=== PATIENT | female | born 1950 | race Hispanic/Latino ===

== ENCOUNTER → 2018-08-18 | Day surgery (SDC) | payer MEDICARE ==
[2018-08-17 17:41] LABS: BASOPHILS # (AUTO) 0.1 (0.0-0.1); BASOPHILS % 0.6 % (0.0-1.0); EOSINOPHILS # (AUTO) 0.2 (0.0-0.4); HEMATOCRIT 40.3 % (34.2-44.1); HEMOGLOBIN 12.8 g/dL (12.0-16.0); LYMPHOCYTES # (AUTO) 2.2 (1.0-3.2); LYMPHOCYTES % 27.5 % (18.0-39.1); MEAN CORPUSCULAR HEMOGLOBIN 30.6 pg (28-32); MEAN CORPUSCULAR HGB CONC 31.8 g/dL (31-35); MEAN CORPUSCULAR VOLUME 96.4 fL (81-99); MONOCYTES % 11.9 % (4.4-11.3); NEUTROPHILS # (AUTO) 4.7 (2.1-6.9); NEUTROPHILS % 57.6 % (38.7-80.0); PLATELET COUNT 231 x10e3/uL (140-360); RED BLOOD COUNT 4.18 x10e6/uL (3.6-5.1); RED CELL DISTRIBUTION WIDTH 14.8 % (11.7-14.4)
--- NOTE | 2018-08-17 18:09 | Diagnostic Imaging Report ---
EXAMINATION: CHEST 2 VIEWS INDICATION: Shoulder pain. Radius pain. Preop ^PRE OP ^[id number] ^1740 ^ANESTH PROT COMPARISON: None FINDINGS: TUBES and LINES: None. LUNGS: Lungs are well inflated. Mild chronic appearing changes in the lungs. There is no evidence of pneumonia or pulmonary edema. PLEURA: No pleural effusion or pneumothorax. HEART AND MEDIASTINUM: The cardiomediastinal silhouette is unremarkable. BONES AND SOFT TISSUES: No acute osseous lesion. Soft tissues are unremarkable. UPPER ABDOMEN: No free air under the diaphragm. IMPRESSION: No acute thoracic abnormality. Signed by: Dr. Edson Murphy M.D. on 08/17/2018 6:05 PM
[~2018-08-18] MED LIST: ACETAMINOPHEN 1000 MG/100 ML 100 ML IV ONE; CEFAZOLIN SOD 1 GM/NS 50ML 50 ML IV ONE; DEXAMETHASONE SOD PHOS INJ 4 MG/ML VIAL ONE; FENTANYL CITRATE/PF 100MCG/2 ML INJ ONE; IBUPROFEN600 MG PO; KETOROLAC TROMETHAMINE 30 MG/ML VIAL ONE; LIDOCAINE HCL 2% LOCAL INJ 5 ML SDV VIAL INJ ONE; LOSARTAN POTASS25 MG PO; METOPROLOL SUCC50 MG PO; ONDANSETRON HCL INJ 2MG/ML 2ML 2 MG/ML VIAL ONE; PROPOFOL IV EMULSION 10 MG/ML 20 ML VIAL ONE; SEVOFLURANE INHAL SOLN 250 ML PEN BTL ONE; TYLENOL WITH C1 EACH PO
--- OUTSIDE RECORDS SUMMARY | 2018-08-18 11:05 | XMS REPORT ---
Author Author [facility] Address Unknown Phone Unavailable Care Team Providers Care Development Spec Name Role Phone PRINCESS ROSENTHAL Unavailable Unavailable Problems This patient has no known problems. Allergies, Adverse Reactions, Alerts This patient has no known allergies or adverse reactions. Medications This patient has no known medications. Results Test Description Test Time Test Comments Text Results Atomic Results Result Comments CHEST 2 VIEWS 2018-08-17 18:05:00 [place] [address] Patient Name: KWASI MCFARLAND MR #: [id number] : 1950 Age/Sex: 68/F Req #: [id number] Adm Physician: Ordered by: PRINCESS ROSENTHAL MD Report #: [id number] Location: OR Room/Bed: Procedure: [id number] DX/CHEST 2 VIEWS Exam Date: 08/17/18 Exam Time: 1740 REPORT STATUS: Signed EXAMINATION: CHEST 2 VIEWS INDICATION: Shoulder pain. Radius pain. Preop PRE OP [id number] ANESTH PROT COMPARISON: None FINDINGS: TUBES and LINES: None. LUNGS: Lungs are well inflated. Mild chronic appearing changes in the lungs. There is no evidence of pneumonia or pulmonary edema. PLEURA: No pleural effusion or pneumothorax. HEART AND MEDIASTINUM: The cardiomediastinal silhouette is unremarkable. BONES AND SOFT TISSUES: No acute osseous lesion. Soft tissues are unremarkable. UPPER ABDOMEN: No free air under the diaphragm. IMPRESSION: No acute thoracic abnormality. Signed by: Dr. Edson Murphy M.D. on 08/17/2018 6:05 PM Dictated By: EDSON MURPHY MD, MD 04 Transcribed By: BRIAN on 08/17/181804 COPY TO: PRINCESS ROSENTHAL MD
[2018-08-18 15:45] VITALS: BP 144/86
--- NOTE | 2018-08-19 10:41 | Operative Report ---
DATE OF PROCEDURE: August 18, 2018 BODY WELDER: None. PREOPERATIVE DIAGNOSIS: Right distal radius fracture. POSTOPERATIVE DIAGNOSIS: Right distal radius fracture. PROCEDURE: Closed reduction and percutaneous pin fixation, right distal radius. INDICATIONS: The patient is a 68-year-old lady who fell and has a right distal radius fracture. The fracture is shortened and angulated. We have discussed the options. She has a BMI of 45. We have recommended closed reduction and percutaneous pin fixation over open reduction with internal fixation. The risks and benefits have been explained. She states she understands and wishes to proceed. DESCRIPTION OF PROCEDURE: The patient was brought to the operating room and placed under general anesthetic. Her right upper extremity was prepped and draped in a sterile manner. A preoperative time out was performed. A C-arm image intensifier was used to assist in ensuring a closed reduction provided a near anatomic alignment. Two 0.062 K-wires were placed from the radial styloid into the radial shaft. The proximal shaft had good quality of bone. Intraoperative x-rays confirmed satisfactory reduction and positioning of the pins. The pins were cut short and capped. A sterile bandage was applied. She was placed into a sugar-tong splint. She was extubated and transported to the recovery room in stable condition. There was no blood loss, and all needle and sponge counts were correct. Job#: [id number]
== END | disposition home or self-care (01) ==
LOC: OR 11:03
PROVIDERS: ATTEND Specialist
DX: S52.501A Unspecified fracture of the lower end of right radius, initial encounter for closed fracture (principal); W18.39XA Other fall on same level, initial encounter; Y92.009 Unspecified place in unspecified non-institutional (private) residence as the place of occurrence of the external cause; I10 Essential (primary) hypertension; Z01.810 Encounter for preprocedural cardiovascular examination; Z01.812 Encounter for preprocedural laboratory examination; Z01.818 Encounter for other preprocedural examination; Z85.3 Personal history of malignant neoplasm of breast; Z90.10 Acquired absence of unspecified breast and nipple
CPT/HCPCS: 25606; 36415; 71046; 76000; 85025; 93005; C1713; J0131; J0690; J1100; J1885; J2001; J2405; J2704

== ENCOUNTER 2023-05-25 13:34 | Inpatient (IN) | payer OTHER ==
[~2023-05-25] VITALS: Ht 157.5 cm; Wt 145.6 kg
[~2023-05-25 13:34] MED LIST changes: -ACETAMINOPHEN 1000 MG/100 ML 100 ML IV ONE; -CEFAZOLIN SOD 1 GM/NS 50ML 50 ML IV ONE; -DEXAMETHASONE SOD PHOS INJ 4 MG/ML VIAL ONE; -FENTANYL CITRATE/PF 100MCG/2 ML INJ ONE; -KETOROLAC TROMETHAMINE 30 MG/ML VIAL ONE; -LIDOCAINE HCL 2% LOCAL INJ 5 ML SDV VIAL INJ ONE; -ONDANSETRON HCL INJ 2MG/ML 2ML 2 MG/ML VIAL ONE; -PROPOFOL IV EMULSION 10 MG/ML 20 ML VIAL ONE; -SEVOFLURANE INHAL SOLN 250 ML PEN BTL ONE
[2023-05-25] MEDS ORDERED: ALBUTEROL/IPRATROPIUM 3 ML NEB NEB ONE (14:00)
[2023-05-25] MEDS ORDERED: METHYLPREDNISOLONE SOD SUCC 125 MG/2ML VIAL IV ONE (14:00)
[2023-05-25 14:17] LABS: BASOPHILS # (AUTO) 0.1 (0.0-0.1); BASOPHILS % 0.4 % (0.0-1.0); EOSINOPHILS % 0.2 % (0.0-6.0); HEMATOCRIT 43.2 % (34.2-44.1); HEMOGLOBIN 12.6 g/dL (12.0-16.0); LYMPHOCYTES # (AUTO) 1.6 (1.0-3.2); LYMPHOCYTES % 12.2 % (18.0-39.1); MEAN CORPUSCULAR HGB CONC 29.2 g/dL (31-35); MEAN CORPUSCULAR VOLUME 92.7 fL (81-99); MONOCYTES # (AUTO) 1.1 (0.2-0.8); MONOCYTES % 8.6 % (4.4-11.3); NEUTROPHILS # (AUTO) 10.2 (2.1-6.9); NEUTROPHILS % 77.7 % (38.7-80.0); PLATELET COUNT 274 x10e3/uL (140-360); RED BLOOD COUNT 4.66 x10e6/uL (3.6-5.1); RED CELL DISTRIBUTION WIDTH 17.2 % (11.7-14.4); WHITE BLOOD COUNT 13.07 x10e3/uL (4.8-10.8)
[2023-05-25 14:20] VITALS: PULSE 77; RESP 22; O2SAT 100
[2023-05-25 14:47] LABS: ALBUMIN 2.8 g/dL (3.5-5.0); ALBUMIN/GLOBULIN RATIO 0.6 (0.8-2.0); ANION GAP 12.9 mmol/L (8-16); BILIRUBIN,TOTAL 0.5 mg/dL (0.2-1.2); CALCIUM 8.9 mg/dL (8.4-10.2); CREATININE, SERUM 1.07 mg/dL (0.57-1.11); POTASSIUM 4.9 mmol/L (3.5-5.1); TOTAL PROTEIN 7.4 g/dL (6.5-8.1)
[2023-05-25] MEDS ORDERED: ONDANSETRON HCL INJ 2MG/ML 2ML 2 MG/ML VIAL IV PRN (16:15)
[2023-05-25] MEDS ORDERED: SODIUM CHLORIDE FLUSH 10 ML SYR INJ PRN (16:15)
[2023-05-25] MEDS ORDERED: ASPIRIN 81 MG CHEW TAB PO ONE ×2 (16:15)
[2023-05-25] MEDS ORDERED: FUROSEMIDE INJ 10 MG/ML 4 ML VIAL IV ONE (16:15)
[2023-05-25 17:14] VITALS: PULSE 78; RESP 22; O2SAT 96
[2023-05-25 20:00] VITALS: BP 122/66; PULSE 90; RESP 16; TEMP 97.9; O2SAT 94
[2023-05-25 21:04] VITALS: BP 169/103; PULSE 92; RESP 18; TEMP 98.5; O2SAT 96
[2023-05-25] MEDS ORDERED: FUROSEMIDE80 MG (21:16)
[2023-05-25] MEDS ORDERED: SYMBICORT 16010.2 GM INH (21:39)
[2023-05-25] MEDS ORDERED: PROVENTIL HFA6.7 GM INH (21:39)
[2023-05-25] MEDS ORDERED: VITAMIN D350 MCG (21:39)
[2023-05-25] MEDS ORDERED: ALEVE ARTHRITI100 GM (21:39)
[2023-05-25] MEDS ORDERED: OMEPRAZOLE40 MG PO (21:39)
[2023-05-25] MEDS ORDERED: [UNRECOGNIZED DRUG - OTHER] (21:39)
[2023-05-25] MEDS ORDERED: MOUNJARO5 MG/0.5 M (21:39)
[2023-05-26] VITALS (10 sets, daily range): BP systolic 106–188; BP diastolic 59–99; PULSE 74–92; RESP 16–21; TEMP 97.7–98.6; O2SAT 93–100
[2023-05-26 01:06] LABS: TROPONIN I 0.314 ng/mL (0-0.300)
[2023-05-26 05:09] LABS: BASOPHILS # (AUTO) 0.1 (0.0-0.1); BASOPHILS % 0.6 % (0.0-1.0); EOSINOPHILS % 0.1 % (0.0-6.0); HEMATOCRIT 45.5 % (34.2-44.1); LYMPHOCYTES # (AUTO) 0.8 (1.0-3.2); LYMPHOCYTES % 5.5 % (18.0-39.1); MEAN CORPUSCULAR HEMOGLOBIN 26.9 pg (28-32); MEAN CORPUSCULAR HGB CONC 28.6 g/dL (31-35); MEAN CORPUSCULAR VOLUME 94.2 fL (81-99); MONOCYTES # (AUTO) 0.4 (0.2-0.8); MONOCYTES % 2.7 % (4.4-11.3); NEUTROPHILS # (AUTO) 11.9 (2.1-6.9); NEUTROPHILS % 85.6 % (38.7-80.0); PLATELET COUNT 289 x10e3/uL (140-360); RED BLOOD COUNT 4.83 x10e6/uL (3.6-5.1); RED CELL DISTRIBUTION WIDTH 17.1 % (11.7-14.4); WHITE BLOOD COUNT 13.91 x10e3/uL (4.8-10.8)
[2023-05-26 05:27] LABS: ALBUMIN 2.8 g/dL (3.5-5.0); ALBUMIN/GLOBULIN RATIO 0.6 (0.8-2.0); ANION GAP 15.6 mmol/L (8-16); BILIRUBIN,TOTAL 0.5 mg/dL (0.2-1.2); CALCIUM 9.1 mg/dL (8.4-10.2); CREATININE, SERUM 1.13 mg/dL (0.57-1.11); POTASSIUM 4.6 mmol/L (3.5-5.1); TOTAL PROTEIN 7.7 g/dL (6.5-8.1)
[2023-05-26] MEDS ORDERED: INFLUENZA VIRUS VAC SPLIT INJ 0.5 ML SYR IM SCH (05:38)
[2023-05-26] MEDS ORDERED: PNEUMOCOCCAL VACCINE POLYVALENT 23 MCG/0.5 ML VIAL IM SCH (05:38)
[2023-05-26] MEDS ORDERED: ONDANSETRON HCL INJ 2MG/ML 2ML 2 MG/ML VIAL IV PRN (08:45)
[2023-05-26] MEDS: ALBUTEROL/IPRATROPIUM 3 ML NEB NEB SCH ×4 (08:45→19:54)
[2023-05-26] MEDS ORDERED: DEXTROSE 50% SYRINGE 50 ML IV PRN (08:45)
[2023-05-26] MEDS ORDERED: ACETAMINOPHEN 325 MG TAB PO PRN (08:45)
[2023-05-26] MEDS ORDERED: ALBUTEROL/IPRATROPIUM 3 ML NEB NEB PRN (08:45)
[2023-05-26] MEDS: BUDESONIDE/FORMOTEROL 160/4.5MCG INHALER INH SCH ×4 (09:00→19:59)
[2023-05-26] MEDS: PANTOPRAZOLE SOD 40 MG TABEC PO SCH (09:15)
[2023-05-26] MEDS: LOSARTAN POTASSIUM 25 MG TAB PO SCH (09:16)
[2023-05-26] MEDS: FUROSEMIDE INJ 10 MG/ML 4 ML VIAL IV SCH ×3 (09:20→20:55)
[2023-05-26 09:33] LABS: TROPONIN I 0.3 ng/mL (0-0.300)
[2023-05-26] MEDS: INSULIN LISPRO 100 UNIT/1 ML 3ML VIAL SQ SCH ×3 (11:30→20:56)
[2023-05-26] MEDS: ENOXAPARIN SOD INJ 40 MG/0.4 ML SYR SC SCH (17:09)
[2023-05-26 17:52] LABS: TROPONIN I 0.343 ng/mL (0-0.300)
[2023-05-26] MEDS: METOPROLOL SUCCINATE 50 MG TAB XL PO SCH (20:55)
[2023-05-27] VITALS (16 sets, daily range): BP systolic 97–134; BP diastolic 50–81; PULSE 73–91; RESP 18–26; TEMP 98.4–99.5; O2SAT 86–100
[2023-05-27] MEDS: ALBUTEROL/IPRATROPIUM 3 ML NEB NEB SCH ×5 (01:00→23:13)
[2023-05-27 05:29] LABS: BASOPHILS # (AUTO) 0.1 (0.0-0.1); BASOPHILS % 0.4 % (0.0-1.0); EOSINOPHILS % 0.1 % (0.0-6.0); HEMATOCRIT 45.5 % (34.2-44.1); HEMOGLOBIN 12.5 g/dL (12.0-16.0); LYMPHOCYTES # (AUTO) 1.3 (1.0-3.2); LYMPHOCYTES % 9.6 % (18.0-39.1); MEAN CORPUSCULAR HEMOGLOBIN 26.8 pg (28-32); MEAN CORPUSCULAR HGB CONC 27.5 g/dL (31-35); MEAN CORPUSCULAR VOLUME 97.6 fL (81-99); MONOCYTES # (AUTO) 1.2 (0.2-0.8); MONOCYTES % 9.6 % (4.4-11.3); PLATELET COUNT 273 x10e3/uL (140-360); RED BLOOD COUNT 4.66 x10e6/uL (3.6-5.1); RED CELL DISTRIBUTION WIDTH 17.2 % (11.7-14.4); WHITE BLOOD COUNT 12.96 x10e3/uL (4.8-10.8)
[2023-05-27] MEDS: FUROSEMIDE INJ 10 MG/ML 4 ML VIAL IV SCH (05:48)
[2023-05-27 06:00] LABS: ANION GAP 13.3 mmol/L (8-16); CREATININE, SERUM 1.35 mg/dL (0.57-1.11); POTASSIUM 4.3 mmol/L (3.5-5.1)
[2023-05-27] MEDS: BUDESONIDE/FORMOTEROL 160/4.5MCG INHALER INH SCH ×2 (07:13→19:00)
[2023-05-27] MEDS: INSULIN LISPRO 100 UNIT/1 ML 3ML VIAL SQ SCH ×4 (07:30→20:40)
[2023-05-27] MEDS: PANTOPRAZOLE SOD 40 MG TABEC PO SCH (07:54)
[2023-05-27] MEDS: LOSARTAN POTASSIUM 25 MG TAB PO SCH (08:22)
[2023-05-27] MEDS ORDERED: ACETAZOLAMIDE SODIUM 500 MG/VIAL IV ONE ×2 (10:00→12:00)
[2023-05-27] MEDS ORDERED: MAGNESIUM HYDROXIDE 30 ML UDC PO PRN (14:00)
[2023-05-27] MEDS ORDERED: ONDANSETRON HCL 4 MG ORAL DISINTEGRATING TAB PO PRN (15:00)
[2023-05-27] MEDS: METHYLPREDNISOLONE SOD SUCC 40 MG/ML VIAL 1ML IV SCH (15:27)
[2023-05-27] MEDS ORDERED: ALBUTEROL/IPRATROPIUM 3 ML NEB NEB SCH (15:30)
[2023-05-27 16:09] LABS: ABG PCO2 120 mmHg (35-45); ABG PH 7.27 (7.35-7.45); ABG PO2 67 mmHg (80-105)
[2023-05-27 16:10] LABS: ABG HCO3 55 mmol/L (22-26); ABG TCO2 50
[2023-05-27] MEDS: SENNOSIDES 8.6 MG TAB PO SCH (16:23)
[2023-05-27] MEDS: DOCUSATE SODIUM 100 MG CAP PO SCH (16:23)
[2023-05-27 17:33] LABS: ABG HCO3 52 mmol/L (22-26); ABG PCO2 115 mmHg (35-45); ABG PH 7.26 (7.35-7.45); ABG PO2 108 mmHg (80-105)
[2023-05-27 17:34] LABS: ABG TCO2 50
[2023-05-27] MEDS: ENOXAPARIN SOD INJ 40 MG/0.4 ML SYR SC SCH (17:50)
[2023-05-27] MEDS: METOPROLOL SUCCINATE 50 MG TAB XL PO SCH (20:39)
[2023-05-28] VITALS (37 sets, daily range): BP systolic 96–155; BP diastolic 51–89; PULSE 70–94; RESP 13–29; TEMP 97.8–99.5; O2SAT 88–99
[2023-05-28] MEDS: METHYLPREDNISOLONE SOD SUCC 40 MG/ML VIAL 1ML IV SCH ×2 (03:13→15:34)
[2023-05-28] MEDS: ALBUTEROL/IPRATROPIUM 3 ML NEB NEB SCH ×6 (03:14→23:22)
[2023-05-28 05:05] LABS: BASOPHILS % 0.2 % (0.0-1.0); HEMATOCRIT 43.1 % (34.2-44.1); HEMOGLOBIN 12.3 g/dL (12.0-16.0); LYMPHOCYTES # (AUTO) 1.1 (1.0-3.2); LYMPHOCYTES % 10.7 % (18.0-39.1); MEAN CORPUSCULAR HEMOGLOBIN 27.4 pg (28-32); MEAN CORPUSCULAR HGB CONC 28.5 g/dL (31-35); MONOCYTES # (AUTO) 0.6 (0.2-0.8); MONOCYTES % 5.7 % (4.4-11.3); NEUTROPHILS # (AUTO) 8.4 (2.1-6.9); NEUTROPHILS % 81.1 % (38.7-80.0); PLATELET COUNT 268 x10e3/uL (140-360); RED BLOOD COUNT 4.49 x10e6/uL (3.6-5.1); RED CELL DISTRIBUTION WIDTH 17.1 % (11.7-14.4); WHITE BLOOD COUNT 10.37 x10e3/uL (4.8-10.8)
[2023-05-28 05:25] LABS: ABG PH 7.34 (7.35-7.45)
[2023-05-28 05:26] LABS: ANION GAP 16.8 mmol/L (8-16); CREATININE, SERUM 1.15 mg/dL (0.57-1.11); MAGNESIUM 1.6 MG/DL (1.3-2.1); POTASSIUM 3.8 mmol/L (3.5-5.1)
[2023-05-28 05:27] LABS: ABG HCO3 51 mmol/L (22-26); ABG PCO2 95 mmHg (35-45); ABG PO2 75 mmHg (80-105); ABG TCO2 > 50
[2023-05-28] MEDS: BUDESONIDE/FORMOTEROL 160/4.5MCG INHALER INH SCH ×2 (07:00→19:05)
[2023-05-28] MEDS: INSULIN LISPRO 100 UNIT/1 ML 3ML VIAL SQ SCH ×4 (07:30→20:06)
[2023-05-28] MEDS: DOCUSATE SODIUM 100 MG CAP PO SCH ×2 (08:14→16:53)
[2023-05-28] MEDS: PANTOPRAZOLE SOD 40 MG TABEC PO SCH (08:14)
[2023-05-28] MEDS: SENNOSIDES 8.6 MG TAB PO SCH ×2 (08:15→16:53)
[2023-05-28] MEDS: LOSARTAN POTASSIUM 25 MG TAB PO SCH (08:15)
[2023-05-28 09:40] LABS: PLATELET ESTIMATE ADEQUATE; PLATELET MORPHOLOGY COMMENT NORMAL; RBC MORPHOLOGY COMMENT NORMAL
[2023-05-28] MEDS ORDERED: ACETAZOLAMIDE 250 MG TAB PO ONE (11:00)
[2023-05-28] MEDS: ENOXAPARIN SOD INJ 40 MG/0.4 ML SYR SC SCH (16:53)
[2023-05-28] MEDS: METOPROLOL SUCCINATE 50 MG TAB XL PO SCH (20:04)
[2023-05-29] VITALS (28 sets, daily range): BP systolic 114–187; BP diastolic 38–155; PULSE 60–85; RESP 14–25; TEMP 98–98.9; O2SAT 91–100
[2023-05-29] MEDS: ALBUTEROL/IPRATROPIUM 3 ML NEB NEB SCH ×6 (03:21→23:13)
[2023-05-29] MEDS: METHYLPREDNISOLONE SOD SUCC 40 MG/ML VIAL 1ML IV SCH ×2 (03:56→14:49)
[2023-05-29] MEDS: HYDRALAZINE HCL 20 MG/ML VIAL IV PRN ×2 (06:10→10:57)
[2023-05-29 06:35] LABS: ANION GAP 14.8 mmol/L (8-16); CALCIUM 9.3 mg/dL (8.4-10.2); CREATININE, SERUM 0.91 mg/dL (0.57-1.11); POTASSIUM 3.8 mmol/L (3.5-5.1)
[2023-05-29 06:54] LABS: BASOPHILS % 0.1 % (0.0-1.0); HEMATOCRIT 43.2 % (34.2-44.1); HEMOGLOBIN 12.5 g/dL (12.0-16.0); LYMPHOCYTES # (AUTO) 0.7 (1.0-3.2); LYMPHOCYTES % 8.4 % (18.0-39.1); MEAN CORPUSCULAR HEMOGLOBIN 27.2 pg (28-32); MEAN CORPUSCULAR HGB CONC 28.9 g/dL (31-35); MEAN CORPUSCULAR VOLUME 93.9 fL (81-99); MONOCYTES # (AUTO) 0.5 (0.2-0.8); MONOCYTES % 6.5 % (4.4-11.3); NEUTROPHILS # (AUTO) 6.8 (2.1-6.9); NEUTROPHILS % 83.5 % (38.7-80.0); PLATELET COUNT 256 x10e3/uL (140-360); WHITE BLOOD COUNT 8.17 x10e3/uL (4.8-10.8)
[2023-05-29] MEDS: BUDESONIDE/FORMOTEROL 160/4.5MCG INHALER INH SCH ×2 (07:14→19:39)
[2023-05-29] MEDS: PANTOPRAZOLE SOD 40 MG TABEC PO SCH (07:37)
[2023-05-29] MEDS: DOCUSATE SODIUM 100 MG CAP PO SCH ×2 (07:37→16:39)
[2023-05-29] MEDS: LOSARTAN POTASSIUM 25 MG TAB PO SCH (07:37)
[2023-05-29] MEDS: INSULIN LISPRO 100 UNIT/1 ML 3ML VIAL SQ SCH ×4 (07:39→21:45)
[2023-05-29] MEDS: SENNOSIDES 8.6 MG TAB PO SCH ×2 (08:22→16:39)
[2023-05-29] MEDS: ENOXAPARIN SOD INJ 40 MG/0.4 ML SYR SC SCH (16:39)
[2023-05-29] MEDS: METOPROLOL SUCCINATE 50 MG TAB XL PO SCH (20:34)
[2023-05-30] VITALS (18 sets, daily range): BP systolic 137–170; BP diastolic 67–87; PULSE 62–92; RESP 14–27; TEMP 98–98.9; O2SAT 80–98
[2023-05-30] MEDS: ALBUTEROL/IPRATROPIUM 3 ML NEB NEB SCH ×6 (02:45→23:12)
[2023-05-30] MEDS: METHYLPREDNISOLONE SOD SUCC 40 MG/ML VIAL 1ML IV SCH ×2 (03:59→14:41)
[2023-05-30] MEDS: BUDESONIDE/FORMOTEROL 160/4.5MCG INHALER INH SCH ×2 (07:30→19:18)
[2023-05-30] MEDS: INSULIN LISPRO 100 UNIT/1 ML 3ML VIAL SQ SCH ×4 (07:30→20:38)
[2023-05-30] MEDS: PANTOPRAZOLE SOD 40 MG TABEC PO SCH (07:59)
[2023-05-30] MEDS: DOCUSATE SODIUM 100 MG CAP PO SCH ×2 (07:59→17:17)
[2023-05-30] MEDS: LOSARTAN POTASSIUM 25 MG TAB PO SCH (07:59)
[2023-05-30] MEDS: SENNOSIDES 8.6 MG TAB PO SCH ×2 (07:59→17:17)
[2023-05-30] MEDS ORDERED: MOUNJARO 5 MG/0.5 ML SC SCH (11:00)
[2023-05-30] MEDS: ENOXAPARIN SOD INJ 40 MG/0.4 ML SYR SC SCH (17:18)
[2023-05-30] MEDS: METOPROLOL SUCCINATE 50 MG TAB XL PO SCH (20:35)
[2023-05-31] VITALS (13 sets, daily range): BP systolic 129–155; BP diastolic 68–112; PULSE 74–85; RESP 18–26; TEMP 97.6–98.3; O2SAT 90–99
[2023-05-31] MEDS: METHYLPREDNISOLONE SOD SUCC 40 MG/ML VIAL 1ML IV SCH ×2 (03:04→16:52)
[2023-05-31] MEDS: ALBUTEROL/IPRATROPIUM 3 ML NEB NEB SCH ×5 (03:14→19:33)
[2023-05-31] MEDS: BUDESONIDE/FORMOTEROL 160/4.5MCG INHALER INH SCH ×2 (07:25→19:47)
[2023-05-31] MEDS: INSULIN LISPRO 100 UNIT/1 ML 3ML VIAL SQ SCH ×4 (07:30→21:00)
[2023-05-31] MEDS: PANTOPRAZOLE SOD 40 MG TABEC PO SCH (07:44)
[2023-05-31] MEDS: DOCUSATE SODIUM 100 MG CAP PO SCH ×2 (08:14→16:52)
[2023-05-31] MEDS: LOSARTAN POTASSIUM 25 MG TAB PO SCH (08:15)
[2023-05-31] MEDS: SENNOSIDES 8.6 MG TAB PO SCH ×2 (08:15→16:52)
[2023-05-31] MEDS: ENOXAPARIN SOD INJ 40 MG/0.4 ML SYR SC SCH (16:52)
[2023-05-31] MEDS: FUROSEMIDE 20 MG TAB PO SCH (17:21)
[2023-05-31] MEDS: METOPROLOL SUCCINATE 50 MG TAB XL PO SCH (21:37)
[2023-06-01] VITALS (10 sets, daily range): BP systolic 108–151; BP diastolic 60–89; PULSE 64–80; RESP 16–34; TEMP 97.8–98.3; O2SAT 92–98
[2023-06-01] MEDS: ALBUTEROL/IPRATROPIUM 3 ML NEB NEB SCH ×6 (03:00→23:00)
[2023-06-01] MEDS: METHYLPREDNISOLONE SOD SUCC 40 MG/ML VIAL 1ML IV SCH ×2 (03:57→14:59)
[2023-06-01 06:06] LABS: ANION GAP 11.6 mmol/L (8-16); CREATININE, SERUM 0.95 mg/dL (0.57-1.11); POTASSIUM 3.6 mmol/L (3.5-5.1)
[2023-06-01] MEDS: BUDESONIDE/FORMOTEROL 160/4.5MCG INHALER INH SCH ×2 (07:30→19:47)
[2023-06-01] MEDS: INSULIN LISPRO 100 UNIT/1 ML 3ML VIAL SQ SCH ×4 (07:30→21:00)
[2023-06-01] MEDS: PANTOPRAZOLE SOD 40 MG TABEC PO SCH (08:52)
[2023-06-01] MEDS: SENNOSIDES 8.6 MG TAB PO SCH ×2 (08:52→16:42)
[2023-06-01] MEDS: DOCUSATE SODIUM 100 MG CAP PO SCH ×2 (08:52→16:42)
[2023-06-01] MEDS: LOSARTAN POTASSIUM 25 MG TAB PO SCH (08:52)
[2023-06-01] MEDS: FUROSEMIDE 20 MG TAB PO SCH (08:52)
[2023-06-01] MEDS: ENOXAPARIN SOD INJ 40 MG/0.4 ML SYR SC SCH (16:42)
[2023-06-01] MEDS: METOPROLOL SUCCINATE 50 MG TAB XL PO SCH (21:33)
[2023-06-02] VITALS (11 sets, daily range): BP systolic 100–135; BP diastolic 58–63; PULSE 65–82; RESP 19–21; TEMP 97.5–98.2; O2SAT 94–98
[2023-06-02] MEDS: ALBUTEROL/IPRATROPIUM 3 ML NEB NEB SCH ×6 (02:10→23:42)
[2023-06-02] MEDS: METHYLPREDNISOLONE SOD SUCC 40 MG/ML VIAL 1ML IV SCH (03:44)
[2023-06-02 04:58] LABS: BASOPHILS % 0.1 % (0.0-1.0); EOSINOPHILS % 0.2 % (0.0-6.0); HEMATOCRIT 43.2 % (34.2-44.1); HEMOGLOBIN 12.7 g/dL (12.0-16.0); LYMPHOCYTES # (AUTO) 1.6 (1.0-3.2); LYMPHOCYTES % 13.8 % (18.0-39.1); MEAN CORPUSCULAR HEMOGLOBIN 26.9 pg (28-32); MEAN CORPUSCULAR HGB CONC 29.4 g/dL (31-35); MEAN CORPUSCULAR VOLUME 91.5 fL (81-99); MONOCYTES # (AUTO) 0.9 (0.2-0.8); MONOCYTES % 7.8 % (4.4-11.3); NEUTROPHILS # (AUTO) 8.8 (2.1-6.9); NEUTROPHILS % 77.6 % (38.7-80.0); PLATELET COUNT 156 x10e3/uL (140-360); RED BLOOD COUNT 4.72 x10e6/uL (3.6-5.1); RED CELL DISTRIBUTION WIDTH 17.2 % (11.7-14.4); WHITE BLOOD COUNT 11.38 x10e3/uL (4.8-10.8)
[2023-06-02 05:12] LABS: PHOSPHORUS 3.5 MG/DL (2.3-4.7)
[2023-06-02 05:22] LABS: CREATININE, SERUM 0.96 mg/dL (0.57-1.11)
[2023-06-02] MEDS: INSULIN LISPRO 100 UNIT/1 ML 3ML VIAL SQ SCH ×4 (07:30→21:00)
[2023-06-02] MEDS: BUDESONIDE/FORMOTEROL 160/4.5MCG INHALER INH SCH ×2 (07:36→19:37)
[2023-06-02] MEDS: DOCUSATE SODIUM 100 MG CAP PO SCH ×2 (09:50→17:00)
[2023-06-02] MEDS: PANTOPRAZOLE SOD 40 MG TABEC PO SCH (09:50)
[2023-06-02] MEDS: LOSARTAN POTASSIUM 25 MG TAB PO SCH (09:50)
[2023-06-02] MEDS: SENNOSIDES 8.6 MG TAB PO SCH ×2 (09:50→17:00)
[2023-06-02] MEDS: FUROSEMIDE 20 MG TAB PO SCH (09:51)
[2023-06-02] MEDS: METOPROLOL SUCCINATE 50 MG TAB XL PO SCH (21:35)
[2023-06-03] VITALS (12 sets, daily range): BP systolic 107–122; BP diastolic 55–66; PULSE 65–85; RESP 18–23; TEMP 98–98.9; O2SAT 94–100
[2023-06-03] MEDS: ALBUTEROL/IPRATROPIUM 3 ML NEB NEB SCH ×5 (02:55→19:15)
[2023-06-03] MEDS: BUDESONIDE/FORMOTEROL 160/4.5MCG INHALER INH SCH ×2 (07:04→19:14)
[2023-06-03] MEDS: INSULIN LISPRO 100 UNIT/1 ML 3ML VIAL SQ SCH ×4 (07:30→20:48)
[2023-06-03] MEDS: SENNOSIDES 8.6 MG TAB PO SCH ×2 (09:00→15:56)
[2023-06-03] MEDS ORDERED: PREDNISONE 20 MG TAB PO SCH (09:00)
[2023-06-03] MEDS: DOCUSATE SODIUM 100 MG CAP PO SCH ×2 (09:00→15:55)
[2023-06-03] MEDS: LOSARTAN POTASSIUM 25 MG TAB PO SCH (09:52)
[2023-06-03] MEDS: PANTOPRAZOLE SOD 40 MG TABEC PO SCH (09:53)
[2023-06-03] MEDS: FUROSEMIDE 20 MG TAB PO SCH (09:53)
[2023-06-03] MEDS: PREDNISONE 20 MG TAB PO SCH (09:55)
[2023-06-03] MEDS: ENOXAPARIN SOD INJ 40 MG/0.4 ML SYR SC SCH (16:48)
[2023-06-03] MEDS: METOPROLOL SUCCINATE 50 MG TAB XL PO SCH (20:29)
[2023-06-03] MEDS: NYSTATIN 15 GM POWDER UD BTL TOP SCH (20:50)
[2023-06-04] VITALS (11 sets, daily range): BP systolic 95–139; BP diastolic 55–73; PULSE 70–106; RESP 17–23; TEMP 97.3–100.6; O2SAT 91–100
[2023-06-04] MEDS: ALBUTEROL/IPRATROPIUM 3 ML NEB NEB SCH ×6 (00:53→19:27)
[2023-06-04] MEDS: BUDESONIDE/FORMOTEROL 160/4.5MCG INHALER INH SCH ×2 (06:46→19:27)
[2023-06-04 07:10] LABS: ANION GAP 14.7 mmol/L (8-16); CALCIUM 8.6 mg/dL (8.4-10.2); CREATININE, SERUM 0.95 mg/dL (0.57-1.11); POTASSIUM 3.7 mmol/L (3.5-5.1)
[2023-06-04] MEDS: INSULIN LISPRO 100 UNIT/1 ML 3ML VIAL SQ SCH ×4 (07:30→21:00)
[2023-06-04] MEDS: NYSTATIN 15 GM POWDER UD BTL TOP SCH ×2 (09:00→23:19)
[2023-06-04] MEDS: LOSARTAN POTASSIUM 25 MG TAB PO SCH (09:06)
[2023-06-04] MEDS: PANTOPRAZOLE SOD 40 MG TABEC PO SCH (09:06)
[2023-06-04] MEDS: PREDNISONE 20 MG TAB PO SCH (09:06)
[2023-06-04] MEDS: DOCUSATE SODIUM 100 MG CAP PO SCH ×2 (09:07→17:01)
[2023-06-04] MEDS: FUROSEMIDE 20 MG TAB PO SCH (09:07)
[2023-06-04] MEDS: SENNOSIDES 8.6 MG TAB PO SCH ×2 (09:07→17:01)
[2023-06-04] MEDS ORDERED: PROMETHAZINE HCL 25 MG TAB PO PRN (10:15)
[2023-06-04] MEDS: ENOXAPARIN SOD INJ 40 MG/0.4 ML SYR SC SCH (17:01)
[2023-06-04] MEDS: METOPROLOL SUCCINATE 50 MG TAB XL PO SCH (23:19)
[2023-06-05] VITALS (11 sets, daily range): BP systolic 96–156; BP diastolic 41–76; PULSE 69–116; RESP 18–23; TEMP 97–98.5; O2SAT 95–100
[2023-06-05] MEDS: ALBUTEROL/IPRATROPIUM 3 ML NEB NEB SCH ×5 (00:02→13:09)
[2023-06-05 06:51] LABS: BASOPHILS % 0.2 % (0.0-1.0); EOSINOPHILS # (AUTO) 0.2 (0.0-0.4); EOSINOPHILS % 1.5 % (0.0-6.0); HEMATOCRIT 40.6 % (34.2-44.1); HEMOGLOBIN 12.2 g/dL (12.0-16.0); LYMPHOCYTES % 9.9 % (18.0-39.1); MEAN CORPUSCULAR HEMOGLOBIN 27.3 pg (28-32); MEAN CORPUSCULAR VOLUME 90.8 fL (81-99); MONOCYTES # (AUTO) 0.7 (0.2-0.8); NEUTROPHILS # (AUTO) 8.5 (2.1-6.9); PLATELET COUNT 145 x10e3/uL (140-360); RED BLOOD COUNT 4.47 x10e6/uL (3.6-5.1); RED CELL DISTRIBUTION WIDTH 17.7 % (11.7-14.4); WHITE BLOOD COUNT 10.43 x10e3/uL (4.8-10.8)
[2023-06-05 07:09] LABS: CALCIUM 8.8 mg/dL (8.4-10.2); CREATININE, SERUM 0.79 mg/dL (0.57-1.11)
[2023-06-05] MEDS: INSULIN LISPRO 100 UNIT/1 ML 3ML VIAL SQ SCH ×3 (07:30→16:30)
[2023-06-05] MEDS: BUDESONIDE/FORMOTEROL 160/4.5MCG INHALER INH SCH (07:52)
[2023-06-05] MEDS: LOSARTAN POTASSIUM 25 MG TAB PO SCH (08:39)
[2023-06-05] MEDS: FUROSEMIDE 20 MG TAB PO SCH (08:40)
[2023-06-05] MEDS: PANTOPRAZOLE SOD 40 MG TABEC PO SCH (08:41)
[2023-06-05] MEDS: DOCUSATE SODIUM 100 MG CAP PO SCH ×2 (08:41→16:34)
[2023-06-05] MEDS: NYSTATIN 15 GM POWDER UD BTL TOP SCH (08:42)
[2023-06-05] MEDS: SENNOSIDES 8.6 MG TAB PO SCH ×2 (08:42→16:34)
[2023-06-05 13:30] LABS: BILIRUBIN,URINE NEGATIVE (NEGATIVE); CLARITY,URINE CLEAR (CLEAR); COLOR,URINE YELLOW (YELLOW); GLUCOSE, URINE NEGATIVE (NEGATIVE); KETONES,URINE NEGATIVE (NEGATIVE); LEUKOCYTE ESTERASE ,URINE NEGATIVE (NEGATIVE); NITRITE,URINE NEGATIVE (NEGATIVE); PH,URINE 7 (5 - 7); PROTEIN,URINE DIPSTICK NEGATIVE (NEGATIVE); URINE UROBILINOGEN 0.2 mg/dL (0.2 - 1)
[2023-06-05 13:36] LABS: BACTERIA,URINE RARE /HPF; EPITHELIAL CELLS,URINE RARE /LPF; WBC,URINE (MAN) 0-5 /HPF (0-5)
== END 2023-06-05 17:09 | DRG 291 ==
LOC: ER 13:57 → ERHOLD 16:12 → MED/SURG 20:58 → ICU 05-27 15:50 → MED/SURG2 05-31 13:32
PROVIDERS: ADMIT Internal Medicine; ATTEND Internal Medicine
PROC: 02HV33Z Insertion of Infusion Device into Superior Vena Cava, Percutaneous Approach (ICD-10-PCS; principal; 2023-05-27)
PROC: B548ZZA Ultrasonography of Superior Vena Cava, Guidance (ICD-10-PCS; 2023-05-27)
DX: I11.0 Hypertensive heart disease with heart failure (principal); I50.33 Acute on chronic diastolic (congestive) heart failure; J18.9 Pneumonia, unspecified organism; J96.22 Acute and chronic respiratory failure with hypercapnia; J96.21 Acute and chronic respiratory failure with hypoxia; E66.2 Morbid (severe) obesity with alveolar hypoventilation; L03.116 Cellulitis of left lower limb; Z68.43 Body mass index [BMI] 50.0-59.9, adult; K59.00 Constipation, unspecified; J43.9 Emphysema, unspecified; Z99.81 Dependence on supplemental oxygen; Z90.11 Acquired absence of right breast and nipple; E03.9 Hypothyroidism, unspecified; I87.8 Other specified disorders of veins; I89.0 Lymphedema, not elsewhere classified; E11.9 Type 2 diabetes mellitus without complications; I27.20 Pulmonary hypertension, unspecified; Z87.891 Personal history of nicotine dependence; G14 Postpolio syndrome
CPT/HCPCS: 36415; 36569; 36600; 71045; 71250; 74018; 74176; 80048; 80053; 81001; 82550; 82805; 82948; 83036; 83735; 83880; 84100; 84443; 84484; 85025; 93005; 93306; 94640; 94660; 94760; 94799; 96365; 96372; 99252; 99284; J1650; J1940; J2543; J2920; J2930; J7512; Q0162; U0002

== ENCOUNTER → 2024-10-05 | Outpatient (REF) | payer OTHER ==
[~2024-10-05] MED LIST changes: +ALEVE ARTHRITI100 GM; +FUROSEMIDE80 MG; +MOUNJARO5 MG/0.5 M; +OMEPRAZOLE40 MG PO; +PROVENTIL HFA6.7 GM INH; +SYMBICORT 16010.2 GM INH; +VITAMIN D350 MCG; +[UNRECOGNIZED DRUG - OTHER]
== END ==
LOC: RAD 11:57
PROVIDERS: ATTEND Internal Medicine
DX: Z01.818 Encounter for other preprocedural examination (principal)
CPT/HCPCS: 71046; 93005

== ENCOUNTER → 2025-01-18 | Outpatient (REF) | payer OTHER ==
[~2025-01-18] MED LIST changes: +BREZTRI AEROS10.7 GM INFIL; +COMBIVENT RESPIM4 GM IH; +CRESTOR40 MG PO; +FARXIGA5 MG PO; +FUROSEMIDE40 MG PO; +LOSARTAN POTAS100 MG PO; +METFORMIN HCL1000 MG PO; +MULTI-VITAMIN1 EACH PO; +PRESERVISION A1 EAC3
[2025-01-18 11:49] LABS: BASOPHILS % 0.3 % (0.0-1.0); EOSINOPHILS % 0.4 % (0.0-6.0); LYMPHOCYTES % 15.0 % (18.0-39.1); MONOCYTES % 6.9 % (4.4-11.3); NEUTROPHILS % 76.9 % (38.7-80.0); RED CELL DISTRIBUTION WIDTH 14.4 % (11.7-14.4)
[2025-01-18 12:23] LABS: EST GLOMERULAR FILTRATION RATE 55.0 ML/MIN (>=60)
== END ==
LOC: LAB 08:00 → EDSTATUS 01-27 12:00
PROVIDERS: ATTEND Ophthalmology
DX: Z01.810 Encounter for preprocedural cardiovascular examination (principal); Z01.812 Encounter for preprocedural laboratory examination; H25.11 Age-related nuclear cataract, right eye; E11.9 Type 2 diabetes mellitus without complications
CPT/HCPCS: 36415; 80048; 85025; 93005

== ENCOUNTER → 2025-04-07 | Day surgery (SDC) | payer OTHER ==
[2025-03-29 15:28] LABS: BASOPHILS % 0.3 % (0.0-1.0); EOSINOPHILS % 0.5 % (0.0-6.0); LYMPHOCYTES % 12.1 % (18.0-39.1); MONOCYTES % 5.7 % (4.4-11.3); NEUTROPHILS % 80.9 % (38.7-80.0); RED CELL DISTRIBUTION WIDTH 15.9 % (11.7-14.4)
[2025-03-29 15:53] LABS: EST GLOMERULAR FILTRATION RATE 36.0 ML/MIN (>=60)
[~2025-04-07] MED LIST changes: +LIDOCAINE HCL 2% LOCAL INJ 5 ML SDV VIAL INJ ONE; +PROPOFOL IV EMULSION 10 MG/ML 20 ML VIAL ONE
[2025-04-07] MEDS: GATIFLOXACIN(OPTH) 5 ML LIQD ONE (09:30)
[2025-04-07] MEDS: PHENYLEPHRINE HCL 2 ML DROPS ONE (09:30)
[2025-04-07] MEDS: LACTATED RINGER'S 1,000 ML ONE (09:30)
[2025-04-07] MEDS: CYCLOPENTOLATE HCL 2% OPTH SOLN 2 ML BTL OP ONE (09:30)
[2025-04-07] MEDS: TETRACAINE HCL 0.5% OPTH SOLN 4 ML BTL ONE (09:30)
[2025-04-07 11:55] VITALS: BP 140/61; PULSE 76; RESP 16; TEMP 97.6; O2SAT 95
== END | disposition home or self-care (01) ==
LOC: OR 08:10
PROVIDERS: ATTEND Ophthalmology
DX: H25.11 Age-related nuclear cataract, right eye (principal); I10 Essential (primary) hypertension; E78.5 Hyperlipidemia, unspecified; I73.9 Peripheral vascular disease, unspecified; J44.9 Chronic obstructive pulmonary disease, unspecified; Z87.891 Personal history of nicotine dependence; E11.9 Type 2 diabetes mellitus without complications; Z79.84 Long term (current) use of oral hypoglycemic drugs; Z85.3 Personal history of malignant neoplasm of breast; Z90.11 Acquired absence of right breast and nipple; Z99.81 Dependence on supplemental oxygen; Z01.810 Encounter for preprocedural cardiovascular examination; Z01.812 Encounter for preprocedural laboratory examination
CPT/HCPCS: 36415 ×2; 66984; 80048; 82948; 85025; J2003; J2704; J7121; V2632